=== PATIENT | female | born 1950 | race Caucasian/White ===

== ENCOUNTER 2022-03-01 00:44 | Day surgery (SDC) | payer MEDICARE, SELFPAY ==
[2022-02-16 14:39] VITALS: BMI 42.7
[2022-03-01 12:10] VITALS: BP 158/60; PULSE 80; RESP 22; TEMP 36.4; O2SAT 96
--- NOTE | 2022-03-01 12:23 | PM.HPGS ---
History of Present Illness History of Present Illness Consent: Risks, benefits, and alternatives have been discussed and questions answered. Patient agrees to proceed with procedure. Chief complaint: hemorrhoids Narrative: Ashley Olguin is a 71 year old female with hemorrhoids, here to get [facility] treatment Review of Systems Constitutional: Constitutional: Denies headache(s) and Denies weakness Eyes: Eyes: Denies blurry vision ENT: Reports Normal hearing present, Denies headache(s) and Denies neck pain Cardiovascular: Cardiovascular: Denies chest pain and Denies dyspnea Respiratory: Respiratory: Denies dyspnea Gastrointestinal: Gastrointestinal: Reports no additional gastrointestinal complaints Genitourinary: Genitourinary: Denies dysuria Musculoskeletal: Musculoskeletal: Denies neck pain Integumentary/Breasts: Skin/Breast: Denies dry skin Neurologic: Reports Normal hearing present, Denies headache(s) and Denies weakness Psychiatric: Psychiatric: Denies anxiety Endocrine: Endocrine: Denies change in body appearance Hematologic/Lymphatic: Hematologic/Lymphatic: Denies easy bleeding Allergic/Immunologic: Allergic/Immunologic: Denies urticaria PMFSH Past Medical History Medical History (Updated 03/01/22 @ 12:23 by Pedro White MD) Anemia Diabetes Gastroparesis HLD (hyperlipidemia) HTN (hypertension) Internal hemorrhoids Obese Social History Social History (Updated 01/27/22 @ 14:31 by Cathi Felipe MA) Smoking status: Never smoker Tobacco type: cigarettes Second hand tobacco smoke exposure: Yes Alcohol intake: former Substance use: never Substance use type: does not use Living arrangements: other Additional living arrangements comments: With Gender identity (if verbalized by the patient): Female Spiritual care concerns: No Meds Home Medications and Allergies Home Medications Medication Instructions Recorded Confirmed Type citalopram 10 mg tablet 10 mg PO DAILY 01/27/22 02/16/22 History furosemide 40 mg tablet 40 mg PO DAILY tablet 01/27/22 02/16/22 History lisinopril 20 mg tablet 5 mg PO DAILY tablet 01/27/22 02/16/22 History metformin 500 mg tablet 500 mg PO BID 01/27/22 02/16/22 History pioglitazone 45 mg tablet 45 mg PO DAILY 01/27/22 02/16/22 History quetiapine 100 mg tablet 100 mg PO DAILY tablet 01/27/22 02/16/22 History sitagliptin 100 mg tablet 100 mg PO DAILY 01/27/22 02/16/22 History Allergies Allergy/AdvReac Type Severity Reaction Status Date / Time NSAIDS (Non-Steroidal AdvReac Unknown Dizziness Verified 02/16/22 14:34 Anti-Inflamma Vital Signs Vital Signs - 24 hr 03/01/22 12:10 Temperature 97.6 F Pulse Rate 80 Respiratory Rate 22 H Blood Pressure 158/60 H Pulse Oximetry 96 Exam Const: General: comfortable and no acute distress HENMT: General nose exam: Normal nares present Eyes: General: appearance normal, both eyes and all related structures Neck: Neck: no JVD Resp: Auscultation: clear to auscultation bilaterally Cardio: Rate: regular rate Rhythm: regular rhythm GI: Inspection: non-distended GI Palp: Yes Soft to palpation Skin: General skin exam: normal color Neuro: General: gait normal Speech: normal speech Extrem: General: normal to inspection Psych: Mental Status: mental status grossly normal Assessment and Plan Assessment and plan (1) Internal hemorrhoids: Code(s): K64.8 - Other hemorrhoids Status: Acute Assessment and Plan: [facility]
--- NOTE | 2022-03-01 12:23 | W.PM.PROC2 ---
Procedure Note - Detailed Date of Procedure 03/01/22 Pre-op Diagnosis hemorrhoids Post-op Diagnosis Same Procedure Performed [facility] Surgeon Pedro White MD Anesthesia None Description of Procedure noted grade II internal hemorrhoids, oozing after contact. Anoscope was introduced and then advanced IRc probe, hemorrhoids treated at 1.5 second each time x6. No complications. Patient to call office if would like to have another treatment in few more weeks
[2022-03-01 12:30] VITALS: BP 143/43; PULSE 84; RESP 22; O2SAT 99
== END 2022-03-01 12:50 | disposition home or self-care (01) ==
PROVIDERS: PCP Physician Assistant; Visit Provider Internal Medicine Gastroenterology
PROC: (CPT 46930; principal; 2022-03-01 13:30)
DX: K64.8 Other hemorrhoids (principal); I10 Essential (primary) hypertension; E78.5 Hyperlipidemia, unspecified; E11.9 Type 2 diabetes mellitus without complications; K31.84 Gastroparesis; D64.9 Anemia, unspecified; E66.01 Morbid (severe) obesity due to excess calories; Z68.41 Body mass index [BMI] 40.0-44.9, adult; Z79.84 Long term (current) use of oral hypoglycemic drugs
CPT/HCPCS: 46930